=== PATIENT | female | born 1995 | race Caucasian/White ===

== ENCOUNTER 2019-03-23 22:23 | Emergency (ER) | payer OTHER ==
[~2019-03-23] VITALS: Ht 162.6 cm; Wt 48.1 kg
[2019-03-23] MEDS ORDERED: GUMSOL SOLUTION30 ML (22:34)
[2019-03-23] MEDS ORDERED: DOLOBID500 MG (22:35)
[2019-03-23] MEDS ORDERED: GILTUSS TR TAB1 EACH (22:35)
[2019-03-23] MEDS ORDERED: CLARITHROMYCIN500 M1 (22:35)
[2019-03-24] MEDS ORDERED: ALBUTEROL2.5 MG/3 M IH (02:55)
== END 2019-03-24 03:00 | disposition home or self-care (01) ==
LOC: ER 22:23
DX: J40 Bronchitis, not specified as acute or chronic (principal)